=== PATIENT | male | born 1955 | race Caucasian/White ===

== ENCOUNTER 2017-10-24 13:11 | Emergency (ER) | payer OTHER, SELFPAY ==
[2017-10-24 14:53] VITALS: BP 172/82; PULSE 79; RESP 20; TEMP 37; O2SAT 95; BMI 28.1
--- NOTE | 2017-10-24 14:56 | XR_ITS ---
XR knee LT 3V Ordering Physician: Allyson Johnson Patient Age: 62 years: Male HISTORY: ITS.REASON: HEARD A POP TECHNIQUE: AP and lateral left knee. COMPARISON :None FINDINGS No fracture nor dislocation evident. No significant joint effusion upper normal joint fluid suprapatella bursa. Bones well mineralized. Joint spaces fairly well maintained with only borderline narrowing at the medial & lateral compartment on these non-weightbearing images. Minor osseous prominence spurring along anterior margin the tibial tubercle is likely long-standing old feature. IMPRESSION: No acute findings. No fracture nor significant joint effusion. Borderline joint space narrowing
--- NOTE | 2017-10-24 15:20 | HMH.EDUTC ---
[facility] [place] Disposition Clinical Impression: Knee pain Qualifiers: Chronicity: acute Laterality: left Qualified Code(s): M25.562 - Pain in left knee Disposition: Home, Self-Care Condition on Discharge: Good Instructions: DI for Knee Pain, How to Use Crutches, How to Use a Knee Immobilizer Additional Instructions: *weight bearing as tolerated *RICE, Rest the extremity, Ice 15-20 minutes 3-4 times daily, Compress- wear the jordy wrap as discussed as much as possible to help reduce swelling and pain, Elevate the extremity when at rest *Jordy wrap is for support and help control swelling, use it except in the shower. Be sure that is not to tight but not to loose either *Elevate when resting *Ibuprofen 600-800mg every 6-8 hours as needed for pain an inflammation. If need something more can take Tylenol in between doses of Ibuprofen to help Immediately follow up for new or worsening of symptoms, or no noticeable improvement over the next 3-5 days Prescriptions: Ibuprofen [Ibuprofen 800mg Tab] 800 mg PO Q8HP PRN #30 tab PRN Reason: Moderate Pain Referrals: Stevo Gonzalez MD [Primary Care Provider] - Jose Carvajal MD [Staff Physician] - Tamir Christianson MD [Staff Physician] - Forms: Work/School Release Time of Disposition: 15:42 Medical Decision Making - Medical Records Medical records reviewed: Yes: I reviewed the patient's medical records. Vital Signs: 10/24/17 14:53 Temperature 98.6 F Temperature Source Temporal Artery Scan Pulse Rate [Right Brachial] 79 Respiratory Rate 20 Blood Pressure [Right Arm] 172/82 Blood Pressure Mean [Right Arm] 112 Blood Pressure Source [Right Arm] Automatic Cuff Blood Pressure Position [Right Arm] Sitting 02 Sat by Pulse Oximetry 95 Oxygen Delivery Method Room Air - Radiology Data #1 Image Reviewed: Yes I discussed the image results w/the radiologist - Salo Inquiry Pt receiving controlled substance: No Salo was queried for this patient: No [facility] [place] HPI - General Stated complaint: WC [id number] left knee Mode of Arrival: Ambulatory Source of Information: Patient Limitations: No Limitations Description of Symptoms (Recalled from Triage Doc. by RN): PT WAS LIFTING A BOX WITH HIS LEFT KNEE AND HEARD IT POP. HEENT Symptoms (Recalled from RN notes): No Resp Symptoms (Recalled from RN notes): No Skin Symptoms (Recalled from RN notes): No MS Symptoms (Recalled from RN notes): Yes (LEFT KNEE) Functional Status (Recalled from RN notes): NA - History of Present Illness Provider Complaint: Patient state that he was working and was lifting a box when he felt something in his knee began to feel weird. States that it felt like something. tweaked or torn State that ever since he has been having pain when he tries to walk on it or bear weight - Related Data Home Medications Medication Instructions Recorded Confirmed Losartan Potassium 50 mg PO DAILY 10/24/17 10/24/17 Previous Rx's Medication Instructions Recorded Ibuprofen [Ibuprofen 800mg Tab] 800 mg PO Q8HP PRN #30 tab 10/24/17 Allergies Allergy/AdvReac Type Severity Reaction Status Date / Time No Known Allergies Allergy Verified 10/24/17 14:30 - Worker's Comp Is this a Worker's Comp case?: No H History I have reviewed the patient's past medical history: Yes - *Social History Smoking Status: Never smoker Alcohol Intake: never - Psychiatric History Expresses thoughts of harming self/others: None Suicide Plan Description: No Plan ROS Obtained: Yes All systems reviewed & no additional complaints - Musculoskeletal Musculoskeletal: Reports other (Pain in left knee) - Allergic/Immunologic Comments: Patient was at work when he tried to lift heavy box, states that box was heavy so he used his left knee to help him lift the box when he felt the knee give State that pain has continued to get worse as the day has went on Physical Exam - General General appearance: alert, in no apparent
--- NOTE | 2017-10-24 15:28 | ED_ITS ---
[facility] [place] Clinical Impression: Knee pain Qualifiers: Chronicity: acute Laterality: left Qualified Code(s): M25.562 - Pain in left knee Disposition: Home, Self-Care Condition on Discharge: Good Instructions: DI for Knee Pain, How to Use Crutches, How to Use a Knee Immobilizer Additional Instructions: *weight bearing as tolerated *RICE, Rest the extremity, Ice 15-20 minutes 3-4 times daily, Compress- wear the jordy wrap as discussed as much as possible to help reduce swelling and pain, Elevate the extremity when at rest *Jordy wrap is for support and help control swelling, use it except in the shower. Be sure that is not to tight but not to loose either *Elevate when resting *Ibuprofen 600-800mg every 6-8 hours as needed for pain an inflammation. If need something more can take Tylenol in between doses of Ibuprofen to help Immediately follow up for new or worsening of symptoms, or no noticeable improvement over the next 3-5 days Prescriptions: Ibuprofen [Ibuprofen 800mg Tab] 800 mg PO Q8HP PRN #30 tab PRN Reason: Moderate Pain Referrals: Stevo Gonzalez MD [Primary Care Provider] - Jose Carvajal MD [Staff Physician] - Tamir Christianson MD [Staff Physician] - Forms: Work/School Release Time of Disposition: 15:42 Medical Decision Making - Medical Records Medical records reviewed: Yes: I reviewed the patient's medical records. Vital Signs: 10/24/17 14:53 Temperature 98.6 F Temperature Source Temporal Artery Scan Pulse Rate [Right Brachial] 79 Respiratory Rate 20 Blood Pressure [Right Arm] 172/82 Blood Pressure Mean [Right Arm] 112 Blood Pressure Source [Right Arm] Automatic Cuff Blood Pressure Position [Right Arm] Sitting 02 Sat by Pulse Oximetry 95 Oxygen Delivery Method Room Air - Radiology Data #1 Image Reviewed: Yes I discussed the image results w/the radiologist - Salo Inquiry Pt receiving controlled substance: No Salo was queried for this patient: No [facility] [place] - General Stated complaint: WC [id number] left knee Mode of Arrival: Ambulatory Source of Information: Patient Limitations: No Limitations Description of Symptoms (Recalled from Triage Doc. by RN): PT WAS LIFTING A BOX WITH HIS LEFT KNEE AND HEARD IT POP. HEENT Symptoms (Recalled from RN notes): No Resp Symptoms (Recalled from RN notes): No Skin Symptoms (Recalled from RN notes): No MS Symptoms (Recalled from RN notes): Yes (LEFT KNEE) Functional Status (Recalled from RN notes): NA - History of Present Illness Provider Complaint: Patient state that he was working and was lifting a box when he felt something in his knee began to feel weird. States that it felt like something. tweaked or torn State that ever since he has been having pain when he tries to walk on it or bear weight - Related Data Home Medications Medication Instructions Recorded Confirmed Losartan Potassium 50 mg PO DAILY 10/24/17 10/24/17 Previous Rx's Medication Instructions Recorded Ibuprofen [Ibuprofen 800mg Tab] 800 mg PO Q8HP PRN #30 tab 10/24/17 Allergies Allergy/AdvReac Type Severity Reaction Status Date / Time No Known Allergies Allergy Verified 10/24/17 14:30 - Worker's Comp Is this a Worker's Comp case?: No H History I have reviewed the patient's past medical history: Yes - *Social History Smoking Status: N
== END 2017-10-24 16:06 | disposition home or self-care (01) ==
LOC: ER 13:20 → UTC 13:44
PROVIDERS: Emergency Provider Nurse Practitioner; Family Provider Family Medicine; PCP Family Medicine
DX: S89.90XA Unspecified injury of unspecified lower leg, initial encounter (principal); X50.0XXA Overexertion from strenuous movement or load, initial encounter; Y92.69 Other specified industrial and construction area as the place of occurrence of the external cause
CPT/HCPCS: 29505; 73562; 99202; 99282

== ENCOUNTER 2019-04-24 12:16 | Outpatient (CLI) | payer OTHER, SELFPAY ==
[2019-04-24 12:26] VITALS: BMI 25.1
== END 2019-04-24 12:39 | disposition home or self-care (01) ==
LOC: UTC.OUT 12:17
PROVIDERS: PCP Family Medicine; Visit Provider Emergency Medicine
DX: L23.7 Allergic contact dermatitis due to plants, except food (principal)

== ENCOUNTER → 2019-09-04 15:44 | Outpatient (POV) | payer OTHER, SELFPAY | PROVIDERS: Visit Provider Dermatology | DX: Z00.00 Encounter for general adult medical examination without abnormal findings (principal) ==

== ENCOUNTER → 2020-12-30 15:22 | Outpatient (POV) | payer OTHER, SELFPAY | PROVIDERS: Visit Provider Dermatology | DX: Z00.00 Encounter for general adult medical examination without abnormal findings (principal) ==

== ENCOUNTER → 2021-11-27 12:08 | Outpatient (CLI) | payer OTHER, SELFPAY ==
--- NOTE | 2021-11-27 12:16 | XR_ITS ---
FINAL REPORT CLINICAL HISTORY: left knee pain, injury 2 years ago while lifting a heavy box and it got better , now it is hurting again COMPARISON: October 24, 2017 FINDINGS: 4 views of the left knee were obtained. There is no acute fracture or dislocation. There are mild degenerative changes. There is vascular calcification. IMPRESSION: Mild degenerative change. Reviewed, Interpreted and Dictated by Korey Salvador III, MD Transcribed by Alli Adams Authenticated by Korey Salvador III, MD on 11/27/2021 01:20:49 PM [facility]
== END ==
PROVIDERS: PCP Family Medicine; Visit Provider Orthopaedic Surgery
DX: M25.562 Pain in left knee (principal)
CPT/HCPCS: 73564

== ENCOUNTER → 2021-12-07 14:21 | Outpatient (CLI) | payer OTHER, SELFPAY ==
--- NOTE | 2021-12-07 14:25 | MR_ITS ---
FINAL REPORT CLINICAL HISTORY: left knee pain, tear of meniscus. yrs ago patient heard a pop in knee. knee locks up. swelling in knee. prior x-ray 11-27-21 FINDINGS: Multiplanar MR imaging of the left knee was performed without contrast. There is abnormal morphology of the posterior horn of the medial meniscus. Although this could represent postoperative change, the appearance is most worrisome for a tear. There is a probable tear at the anterior horn of the lateral meniscus. The anterior and posterior cruciate ligaments are intact. The medial collateral ligament and lateral ligamentous complex are intact. The patellar and quadriceps tendons are intact. There is no evidence of fracture. Mild degenerative changes are seen. There is severe chondromalacia of the medial compartment with osteochondral lesions of the medial femoral condyle and medial tibial plateau. Bone marrow edema is noted in the medial femoral condyle and medial tibial plateau. A small joint effusion is seen. The musculature is intact. A small popliteal cyst is noted. IMPRESSION: Abnormal appearance of the posterior horn of the medial meniscus most worrisome for a tear. Probable tear anterior horn lateral meniscus. 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 Authenticated by Korey Salvador III, MD on 12/07/2021 03:59:41 PM [facility]
== END ==
PROVIDERS: PCP Family Medicine; Visit Provider Orthopaedic Surgery
DX: M17.12 Unilateral primary osteoarthritis, left knee (principal); S83.207A Unspecified tear of unspecified meniscus, current injury, left knee, initial encounter
CPT/HCPCS: 73721

== ENCOUNTER → 2022-10-20 07:56 | Outpatient (CLI) | payer OTHER, SELFPAY ==
--- NOTE | 2022-10-20 | CA_ITS ---
APPROVED REPORT EXAM: Comprehensive 2D, Doppler, and color-flow Echocardiogram Hammer Heater: April Sung CRT Ht: 5 ft 8 in Wt: 185lbs BSA: 1.98 BP: 127/85 mmHg Indications: Murmur, Hypertension/HDD, EX SMOKER, ASTHMA 2D Dimensions LVOT 1.30 cm (M/F) 1.5-2.5 LA Volume 28.10 mL LA Volume Index 13.80 mL/m2 (M/F) 16-34 M-Mode Dimensions RVDd 2.39 cm (0.9-2.6) LA Diam 3.27 cm (1.9-4.0) LVDd 4.94 cm (3.5-5.7) Ao Diam 3.90 cm (2.0-3.7) LVDs 3.65 cm (3.5-5.7) IVSd 1.29 cm (0.6-1.1) PWd 0.87 cm (0.6-1.1) EF (Teich) 51.00% FS 26.10% EDV (Teich) 115.00 mL TAPSE 1.94 (<1.7) ESV (Teich) 56.30 mL LV Diastology E Decel Time 353.00 (160-240 msec) E/A Ratio 0.97 MED E' 4.60 (< 7 cm/sec) MED A' 8.50 cm/s E'/MED E' Ratio 24.35 (>14) LAT E' 7.80 (<10 cm/sec) LAT A' 13.40 cm/s E/LAT E' Ratio 14.36 (>14) Aortic Valve LVOT Max 156.00 (70-110 cm/s) LVOT VTI 38.83 cm AoV Peak Byron. 206.00 (50-130 cm/s) AI PHT 375.00 ms AO Peak GR. 18.50 mmHg AO Mean GR. 11.50 (<5 mmHg) AO VTI 44.19 (18-25 cm) SHAYAN (VTI) 1.17 (2.5-4.5 cm2) Mitral Valve MV E Max Byron. 112.00 (40-130 cm/s) MV A Velocity 115.00 (40-130 cm/s) E/A Ratio 0.97 MV Decel. Time 353.00 (160-240 ms) MV PHT 103.00 ms Pulmonary Valve PV Peak Velocity 164.00 (50-150 cm/s) Tricuspid Valve TR P. Velocity 179.00 cm/s RAP Estimate 10.00 mmHg RVSP 22.80 mmHg Left Ventricle Left atrium is mildly enlarged, left ventricle is normal size mild concentric left ventricular hypertrophy, estimated ejection fraction 55% with no regional wall motion abnormality, grade 1 diastolic dysfunction seen without tissue Doppler evidence of raise left atrial pressure. Right Ventricle Right atrium and right ventricular normal size and contractility. Aortic Valve Aortic valve is thickened and calcified with mild reduction leaflet mobility, mean gradient across aortic valve is 16 mmHg, which represents mild aortic stenosis, there is trace aortic insufficiency. Mitral Valve Mitral valve is grossly normal, there is trace mitral regurgitation. Tricuspid Valve Tricuspid grossly normal, there is trace tricuspid regurgitation, tricuspid regurgitation jet velocity is inadequate for calculation of the right ventricular systolic pressure. Pulmonic Valve Pulmonic valve is poorly visualized. Great Vessels Aortic root is normal size. Inferior vena cava is normal size with normal inspiratory collapse. Pericardium No significant pericardial effusion noted. Conclusion 1. Mildly enlarged left atrium, normal left ventricular size mild concentric left ventricular hypertrophy, estimated ejection fraction 55% with no regional wall motion abnormality, grade 1 diastolic dysfunction seen without tissue Doppler evidence of raise left atrial pressure. 2. Thickened and calcified aortic valve with mild aortic stenosis, there is trace aortic insufficiency. 3. Trace mitral and tricuspid regurgitation. 4. No significant pericardial effusion. 5. Inferior vena cava normal size with normal inspiratory collapse. Electronically signed by : John Foster MD 10/20/2022 14:41:04
== END ==
PROVIDERS: PCP Family Medicine; Visit Provider Family Medicine
DX: R01.1 Cardiac murmur, unspecified (principal)
CPT/HCPCS: 93306

== ENCOUNTER 2023-10-26 10:40 | Outpatient (CLI) | payer OTHER, SELFPAY ==
--- NOTE | 2023-10-26 10:46 | XR_ITS ---
FINAL REPORT CLINICAL HISTORY: Lt Knee Pain FINDINGS: Left knee Three views were obtained. There is no acute fracture or dislocation. There are mild and moderate degenerative changes. There is moderate medial compartment narrowing. Moderate joint effusion is identified. Vascular calcification is noted. IMPRESSION: Degenerative changes and moderate joint effusion. Reviewed, Interpreted and Dictated by Korey Salvador III, MD Transcribed by April Hernandez Authenticated and [facility]
== END 2023-10-26 23:59 ==
LOC: RAD 10:41
PROVIDERS: PCP Family Medicine; Visit Provider Orthopaedic Surgery
DX: M25.562 Pain in left knee (principal)
CPT/HCPCS: 73562

== ENCOUNTER 2023-11-15 07:01 | Outpatient (CLI) | payer OTHER, SELFPAY ==
[2023-11-15 08:19] LABS: Chloride 104 mmol/L (98-107)
[2023-11-15 08:20] LABS: Potassium 4.7 mmoL/L (3.5-5.1); Sodium 139 mmol/L (136-145)
[2023-11-15 08:22] LABS: Alanine Aminotransferase 31 U/L (12-78); Albumin Level 4.1 g/dl (3.5-5.0); Albumin/Globulin Ratio 1.5 (1.1-1.8); Alkaline Phosphatase 80 U/L (38-126); Anion Gap 7.7 mEq/L (5-15); Aspartate Amino Transferase 33 U/L (17-59); Bilirubin,Total 0.6 mg/dl (0.2-1.3); Blood Urea Nitrogen 17 mg/dl (9-20); Calcium 9.5 mg/dl (8.4-10.2); Carbon Dioxide 32 mmol/L (22.0-30.0); Cholesterol 208 mg/dl (140-200); Estimated Glomerular Filt Rate 96 ml/min (>60); GFR (African American) 116 ML/MIN (>60); Globulin 2.7 g/dL (1.3-3.2); Glucose 139 mg/dl (74-100); Total Protein,Serum 6.8 g/dl (6.3-8.2); Triglycerides 116 mg/dl (30-150); VLDL Cholesterol 23 mg/dL (0-40)
[2023-11-15 08:23] LABS: Chol/HDL Ratio 4.6 (1-3.5); HDL Cholesterol 45 mg/dl (40-60)
[2023-11-15 08:34] LABS: Direct LDL Cholesterol 118.62 mg/dL (100-129)
[2023-11-15 09:00] LABS: Uric Acid 4.6 mg/dl (3.5-8.5)
[2023-11-15 09:31] LABS: Prostate Specific Ag Screen 0.8 ng/ml (0.0-4.0); Thyroid Stimulating Hormone 2.41 uIU/mL (0.465-4.68)
[2023-11-15 10:31] LABS: Hemoglobin A1C 6.4 % (4.0-6.0)
[2023-11-15 16:24] LABS: Creatinine,Urine Random 123 mg/dL (Not Estab.)
[2023-11-15 16:27] LABS: Microalbumin/Creatinine Ratio 12.9
== END 2023-11-15 23:59 ==
LOC: LAB 07:02
PROVIDERS: PCP Family Medicine; Visit Provider Family Medicine
DX: I10 Essential (primary) hypertension (principal); E78.00 Pure hypercholesterolemia, unspecified; R73.01 Impaired fasting glucose; Z12.5 Encounter for screening for malignant neoplasm of prostate
CPT/HCPCS: 36415; 80053; 80061; 82043; 82570; 83036; 84443; 84550; G0103

== ENCOUNTER 2024-07-29 09:58 | Emergency (ER) | payer OTHER, SELFPAY ==
[2024-07-29] VITALS (7 sets, daily range): BP systolic 126–272; BP diastolic 93–134; PULSE 63–101; RESP 16–22; TEMP 36.8–36.9; O2SAT 95–98; BMI 27.2
--- NOTE | 2024-07-29 10:19 | EXP.UTC ---
Discharge Plan Prescriptions Prescriptions: No Action carvedilol 12.5 mg tablet 12.5 mg PO BID irbesartan-hydrochlorothiazide 300-12.5 mg tablet PO Referrals Follow up/Referrals: Stevo Gonzalez MD [Primary Care Provider] - See instructions Print Language Print Language: Portuguese Discharge ED Provider: Tamir Gibson [facility] [place] HPI General Stated complaint: Headache, dizzy, hallucinations, weakness Time Seen by Provider: 07/29/24 10:19 History of Present Illness Provider Complaint: He states that for the past 2 days he has had a headache, confusion at times, dizziness, and he has had hallucinations at times. Related Data Home Medications ?Medication ?Instructions ?Recorded ?Confirmed carvedilol 12.5 mg tablet 12.5 mg PO BID bp 12/19/18 10/27/23 irbesartan 300 tab PO 10/27/23 10/27/23 mg-hydrochlorothiazide 12.5 mg tablet Allergies Allergy/AdvReac Type Severity Reaction Status Date / Time No Known Allergies Allergy Verified 10/27/23 08:59 [facility] Disclaimer: The information contained in this section may have been updated after the patient was seen, as this information can be updated by other users. 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 [employer] caffeine: Yes ROS Obtained: Yes All systems reviewed & no additional complaints except as documented Constitutional Constitutional: Denies chills, Denies fever(s) and Reports headache(s) Eyes Eyes: Denies eye discharge ENT Ears, Nose, Mouth, and Throat: Reports dizziness, Denies otalgia, Reports headache(s) and Denies sore throat Cardiovascular Cardiovascular: Denies chest pain Respiratory Respiratory: Denies shortness of breath, Denies chest congestion, Denies cough, Denies stridor and Denies wheezing Gastrointestinal Gastrointestingal: Denies nausea or vomiting Musculoskeletal Musculoskeletal: Reports system reviewed and no additional complaints, except as documented and Denies arthralgias Integumentary/Breasts Skin/Breast: Denies rash Neurologic Neurologic: Reports as per HPI, Reports dizziness, Reports headache(s), Reports other visual disturbances and Denies paresthesias Allergic/Immunologic Allergic/Immunologic: Denies wheezing Physical Exam General General appearance: alert and in no apparent distress Head Head exam: atraumatic, normocephalic and normal inspection Eye Eye exam: Present normal appearance, PERRL and EOMI ENT ENT exam: Present normal exam, normal oropharynx, mucous membranes moist, TM's normal bilaterally and normal external ear exam Neck Neck exam: Present normal inspection, full ROM and trachea midline; Absent meningismus or lymphadenopathy Chest Chest inspection: Present normal inspection and symmetric chest wall rise; Absent tenderness Respiratory Respiratory exam: Present normal lung sounds bilaterally; Absent respiratory distress Cardiovascular Cardiovascular exam: Present regular rate and normal rhythm; Absent JVD Abdominal Exam Abdominal exam: Present soft and normal bowel sounds; Absent distention, tenderness or guarding Extremities Exam Extremities exam: Present normal inspection, full ROM and normal capillary refill; Absent calf tenderness Back Exam Back exam: Present normal inspection; Absent tenderness Neurological Exam Neurological exam: Present alert, oriented X3, CN II-XII intact, normal gait and reflexes normal; Absent motor sensory deficit Psychiatric Psychiatric exam: Present normal affect and normal mood Skin Skin exam: Present warm, dry, intact and normal color Lymphatic Lymphatic Findings: no adenopathy Medical Decision Making Medical Records Medical records reviewed: No I reviewed the patient's medical records. Screening: Per USPSTF and CDC recommendations, given the prevalence of disease in our region, it is our hospital?s policy to screen for HIV and viral Hepatitis for all patients aged 18 and over and those with ongoing risk factors. Salo Inquiry Pt receiving controlled substance: No Medical Decision Narrative: He was transferred to the er [facility] for further evaluation and treatment.
--- NOTE | 2024-07-29 10:38 | ECG_ITS ---
APPROVED REPORT Exam: Resting ECG HR:75 bpm ECG Measurements Heart Rate 75 AXES WI 158 P 34 QRSd 108 QRS -35 QT 370 T 29 QTc 399 Conclusion SINUS RHYTHM WITH MARKED SINUS ARRHYTHMIA LEFT AXIS DEVIATION [QRS AXIS < -30] ABNORMAL ECG UNCONFIRMED REPORT Electronically signed by : Tamir Mclain, 07/29/2024 15:21:10
--- NOTE | 2024-07-29 10:40 | PC.NURSE ---
Finger Blood Stick is 125 at this time.
--- NOTE | 2024-07-29 10:55 | PC.NURSE ---
labs collected and sent to lab
--- NOTE | 2024-07-29 11:03 | CT_ITS ---
PROCEDURE INFORMATION: Exam: CTA Neck With Contrast Exam date and time: 07/29/2024 12:02 PM Age: 69 years old Clinical indication: Stroke-like symptoms; Headache; Additional info: Severe FLORES x 2 days with HTN TECHNIQUE: Imaging protocol: Computed tomographic angiography of the neck with contrast. Exam focused on the cervical segments of the vasculature. 3D rendering (Not supervised by radiologist): MIP and/or 3D reconstructed images were created by the technologist. Radiation optimization: All CT scans at this facility use at least one of these dose optimization techniques: automated exposure control; mA and/or kV adjustment per patient size (includes targeted exams where dose is matched to clinical indication); or iterative reconstruction. Contrast material: ISOVUE 370; Contrast volume: 80 ml; Contrast route: INTRAVENOUS (IV); COMPARISON: CT ANGIO HEAD 07/29/2024 12:02 PM FINDINGS: Right common carotid artery: No stenosis. No dissection or occlusion. Right internal carotid artery: No stenosis of the extracranial segment. No dissection or occlusion. Right external carotid artery: No occlusion or stenosis of the origin. Left common carotid artery: No stenosis. No dissection or occlusion. Left internal carotid artery: No stenosis of the extracranial segment. No dissection or occlusion. Left external carotid artery: No occlusion or stenosis of the origin. Right vertebral artery: No stenosis. No dissection or occlusion. Left vertebral artery: No stenosis. No dissection or occlusion. Soft tissues: Normal. No significant soft tissue swelling. Bones/joints: No acute fracture. IMPRESSION: No stenosis or occlusion. REFERENCES: NASCET CRITERIA. The degree of stenosis in the cervical segment of the internal carotid artery is based on NASCET criteria. Normal is no stenosis. Mild is less than 50% stenosis. Moderate is 50-69% stenosis. Severe is 70% to 99% stenosis. Total occlusion is no detectable patent lumen.
--- NOTE | 2024-07-29 11:03 | CT_ITS ---
PROCEDURE INFORMATION: Exam: CTA Head With Contrast, Arteriography Exam date and time: 07/29/2024 12:02 PM Age: 69 years old Clinical indication: Stroke-like symptoms; Headache; Additional info: Severe FLORES x 2 days with HTN TECHNIQUE: Imaging protocol: Computed tomographic angiography of the head with contrast. Exam focused on the arteries. 3D rendering (Not supervised by radiologist): MIP and/or 3D reconstructed images were created by the technologist. Radiation optimization: All CT scans at this facility use at least one of these dose optimization techniques: automated exposure control; mA and/or kV adjustment per patient size (includes targeted exams where dose is matched to clinical indication); or iterative reconstruction. Contrast material: ISOVUE 370; Contrast volume: 80 ml; Contrast route: INTRAVENOUS (IV); COMPARISON: CT HEAD/BRAIN WO CON 07/29/2024 11:57 AM FINDINGS: ANTERIOR CIRCULATION: Right internal carotid artery: Intracranial segment is patent with no significant stenosis. No aneurysm. Right middle cerebral artery: No occlusion or significant stenosis. No aneurysm. Right anterior cerebral artery: No occlusion or significant stenosis. No aneurysm. Left internal carotid artery: Intracranial segment is patent with no significant stenosis. No aneurysm. Left middle cerebral artery: No occlusion or significant stenosis. No aneurysm. Left anterior cerebral artery: No occlusion or significant stenosis. No aneurysm. POSTERIOR CIRCULATION: Right vertebral artery: No occlusion or significant stenosis. No aneurysm. Left vertebral artery: No occlusion or significant stenosis. No aneurysm. Basilar artery: No occlusion or significant stenosis. No aneurysm. Right posterior cerebral artery: Concern for vascular malformation in the right occipital lobe. No aneurysm. Recommend MRI/MRA for further evaluation. Left posterior cerebral artery: No occlusion or significant stenosis. No aneurysm. Brain: Right occipital infarct, mild mass effect, no midline shift. Cerebral ventricles: No ventriculomegaly. Bones/joints: Unremarkable. No acute fracture. Soft tissues: Unremarkable. 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 MRI/MRA recommended.
--- NOTE | 2024-07-29 11:03 | CT_ITS ---
PROCEDURE INFORMATION: Exam: CT Head Without Contrast Exam date and time: 07/29/2024 11:57 AM Age: 69 years old Clinical indication: Stroke-like symptoms; Headache; Additional info: Severe FLORES x 2 days with HTN TECHNIQUE: Imaging protocol: Computed tomography of the head without contrast. Radiation optimization: All CT scans at this facility use at least one of these dose optimization techniques: automated exposure control; mA and/or kV adjustment per patient size (includes targeted exams where dose is matched to clinical indication); or iterative reconstruction. Other technique: STROKE PROTOCOL was implemented. COMPARISON: No relevant prior studies available. FINDINGS: Brain: 6 mm hemorrhage in the occipital lobe at the gallegos-white interface. 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 No acute mass effect, midline shift, or extra-axial fluid collection. Cerebral ventricles: No ventriculomegaly. Paranasal sinuses: Visualized sinuses are unremarkable. No fluid levels. Mastoid air cells: Visualized mastoid air cells are well aerated. Bones: Unremarkable. No acute fracture. Soft tissues: Unremarkable. IMPRESSION: 1. 6 mm hemorrhage in the occipital lobe at the gallegos-white interface. Posterior cerebral distribution. 2. 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 ASSESSMENT: ASPECTS ([place] Stroke Program Early CT Score) is 10.
[2024-07-29 11:13] LABS: Basophils # 0.1 K/mm3 (0-0.2); Basophils % 1.1 % (0.1-2.0); Eosinophils # 0.1 K/mm3 (0.0-0.4); Eosinophils % 1.4 % (0.1-12.0); Hematocrit 42.3 % (42.0-52.0); Hemoglobin 14.7 g/dL (14.1-18.0); Lymphocytes # 1.6 K/mm3 (0.7-4.5); Lymphocytes % 18.4 % (10-50); Mean Corpuscular HGB Conc 34.6 g/dL (31.8-35.4); Mean Corpuscular Hemoglobin 31.1 pg (27.0-31.2); Mean Corpuscular Volume 89.7 fl (80-94); Mean Platelet Volume 7.6 fl (7.4-10.4); Monocytes # 0.7 K/mm3 (0.1-1.0); Monocytes % 7.6 % (1.7-9.3); Neutrophils # 6.3 K/mm3 (1.8-7.8); Neutrophils % 71.5 % (37.0-80.0); Platelet Count 492 K/mm3 (142-424); Red Blood Count 4.71 M/mm3 (4.60-6.20); Red Cell Distribution Width 13.8 % (11.5-17.5); White Blood Count 8.8 K/mm3 (4.8-10.8)
[2024-07-29 11:15] LABS: Albumin Level 4.6 g/dl (3.5-5.0); Chloride 102 mmol/L (98-107); Potassium 3.6 mmoL/L (3.5-5.1); Sodium 140 mmol/L (136-145)
[2024-07-29] MEDS: KETOROLAC 30MG/ML VIAL 15 MG IV (11:17)
[2024-07-29] MEDS: diphenhydrAMINE 50MG/ML VIAL 25 MG IV (11:17)
[2024-07-29 11:18] LABS: Alanine Aminotransferase 28 U/L (12-78); Albumin/Globulin Ratio 1.4 (1.1-1.8); Alkaline Phosphatase 80 U/L (38-126); Anion Gap 11.6 mEq/L (5-15); Aspartate Amino Transferase 38 U/L (17-59); Blood Urea Nitrogen 14 mg/dl (9-20); Calcium 9.6 mg/dl (8.4-10.2); Carbon Dioxide 30 mmol/L (22.0-30.0); Creatinine Clearance Estimated 78 mL/min (50-200); Estimated Glomerular Filt Rate 95 ml/min (>60); GFR (African American) 115 ML/MIN (>60); Globulin 3.3 g/dL (1.3-3.2); Glucose 134 mg/dl (74-100); Total Protein,Serum 7.9 g/dl (6.3-8.2)
[2024-07-29] MEDS: LACTATED RINGERS 1000ML 1,000 ML 999 ML IV (11:18)
[2024-07-29] MEDS: PROCHLORPERAZINE 10MG/2ML VIAL 10 MG IV (11:18)
[2024-07-29 11:30] LABS: Troponin I 0.02 ng/ml (0.00-0.034)
[2024-07-29 11:48] LABS: HIV (1&2) Antibody Rapid NONREACTIVE (NONREACTIVE)
[2024-07-29] MEDS: 0.9 % SODIUM CHLORIDE 50 ML VIAL IV (12:08)
[2024-07-29] MEDS: IOPAMIDOL-370 (76%);100ML BOTTLE 80 ML IV (12:08)
[2024-07-29] MEDS: SODIUM CHLORIDE 0.9% 10ML SYR (RAD ONLY) 10 ML IV (12:08)
--- NOTE | 2024-07-29 12:15 | PC.NURSE ---
ROUNDED ON PT, REPORTS HEADACHE IMPROVING. CALL LIGHT WITHIN REACH, URINAL PROVIDED
--- NOTE | 2024-07-29 12:20 | PC.NURSE ---
DR OLIVEIRA SPEAKING WITH SALOMON
--- NOTE | 2024-07-29 12:22 | PC.NURSE ---
DR OLIVEIRA AT BEDSIDE TO UPDATE PT
--- NOTE | 2024-07-29 12:30 | HMH.EDGENADL ---
Discharge Plan Disposition Chief Complaint: Headache Prescriptions Prescriptions: No Action carvedilol 12.5 mg tablet 12.5 mg PO BID irbesartan-hydrochlorothiazide 300-12.5 mg tablet PO Referrals Follow up/Referrals: Stevo Gonzalez MD [Primary Care Provider] - See instructions Clinical Impressions Clinical Impression: Occipital stroke, Hemorrhagic stroke, Homonymous hemianopsia Print Language Print Language: Salvadorean Discharge ED Provider: Db Mclain General Adult HPI General Chief complaint: Headache Stated complaint: Headache, dizzy, hallucinations, weakness Time Seen by Provider: 07/29/24 10:19 Mode of Arrival: Wheelchair Source of Information: Patient Limitations: No Limitations Description of Symptoms (Recalled from ER Triage Doc. by RN): Reports being weak and dizzy since he got his flu shot on Tuesday. States that he has a severe headache and fatigue. Patient states that he has been having hallucinations as well. History of Present Illness HPI narrative: Patient is a 69-year-old male presenting today from the urgent treatment clinic with a headache and hypertension. States this started on Tuesday and was progressively worsening throughout the day and was very severe. He went to sleep woke up and it was slightly better. He did state initially he had some blurred vision but denied any focal neurologic deficits after that and in fact states that his vision was normal. States he still has a pretty moderate to severe headache. Related Data Home Medications ?Medication ?Instructions ?Recorded ?Confirmed carvedilol 12.5 mg tablet 12.5 mg PO BID bp 12/19/18 10/27/23 irbesartan 300 tab PO 10/27/23 10/27/23 mg-hydrochlorothiazide 12.5 mg tablet Allergies Allergy/AdvReac Type Severity Reaction Status Date / Time No Known Allergies Allergy Verified 10/27/23 08:59 [facility] Disclaimer: The information contained in this section may have been updated after the patient was seen, as this information can be updated by other users. 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 [employer] caffeine: Yes Other Medical History Have you received the Flu Vaccine for this season: Yes Have you received the Pneumonia Vaccine: Yes ROS Obtained: Yes All systems reviewed & no additional complaints except as documented Physical Exam General General appearance: alert and in no apparent distress Respiratory Respiratory exam: Present normal lung sounds bilaterally Cardiovascular Cardiovascular exam: Present regular rate and normal rhythm Neurological Exam Neurological exam: Present alert, oriented X3, CN II-XII intact (Initial exam appeared normal but on reassessment he has a left homonymous hemianopsia temporal and right nasal visual field loss otherwise normal visual acuity and remainder is neurologic exam is nonfocal), normal gait, motor sensory deficit and reflexes normal Medical Decision Making Medical Records Screening: Per USPSTF and CDC recommendations, given the prevalence of disease in our region, it is our hospital?s policy to screen for HIV and viral Hepatitis for all patients aged 18 and over and those with ongoing risk factors. Salo Inquiry Pt receiving controlled substance: No Vital Signs: 07/29/24 10:27 07/29/24 10:41 Temperature 98.4 F 98.4 F Temperature Source Oral Oral Pulse Rate [Right Brachial] 83 83 Respiratory Rate 20 16 Blood Pressure [Left Arm] 272/134 H 242/114 H Blood Pressure Mean [Left Arm] 180 156 Blood Pressure Source [Left Arm] Automatic Cuff Blood Pressure Position [Left Arm] Sitting 02 Sat by Pulse Oximetry 95 95 Oxygen Delivery Method Room Air Lab Data Lab results reviewed: Yes I reviewed the patient's lab results. Lab Results 07/29/24 10:55: WBC 8.8, RBC 4.71, Hgb 14.7, Hct 42.3, MCV 89.7, MCH 31.1, MCHC 34.6, RDW 13.8, Plt Count 492 H, MPV 7.6, Neut % (Auto) 71.5, Lymph % (Auto) 18.4, Bucks % (Auto) 7.6, Eos % (Auto) 1.4, Baso % (Auto) 1.1, Neut # (Auto) 6.3, Lymph # (Auto) 1.6, Bucks # (Auto) 0.7, Eos # (Auto) 0.1, Baso # (Auto) 0.1, Sodium 140, Potassium 3.6, Chloride 102, Carbon Dioxide 30, Anion Gap 11.6, BUN 14, Creatinine 0.80, Estimated Creat Clear 78, Estimated GFR 95, Est GFR ( Amer) 115, Glucose 134 H, Calcium 9.6, Total Bilirubin 1.0, AST 38, ALT 28, Alkaline Phosphatase 80, Troponin I 0.02, Total Protein 7.9, Albumin 4.6, Globulin 3.3 H, Albumin/Globulin Ratio 1.4, HIV 1&2 Antibody Rapid Nonreactive 07/29/24 10:55 07/29/24 10:55 Orders (Tests/Meds): ED MEDICATIONS Discontinued Medications Generic Name Dose Route Start Last Admin Trade Name Freq PRN Reason Stop Dose Admin Diphenhydramine HCl 25 mg 07/29/24 11:03 07/29/24 11:17 Diphenhydramine 50mg/Ml Vial IV 07/29/24 11:04 25 mg ONCE ONE Administration Lactated Ringer's 1,000 mls @ 999 mls/hr 07/29/24 11:15 07/29/24 11:18 Lactated Ringer's 1000 Ml Bag IV 07/29/24 12:15 999 mls/hr .Q1H1M ZOEY Administration Iopamidol 80 ml 07/29/24 12:07 07/29/24 12:08 Iopamidol-370 (76%);100ml Bottle IV 07/29/24 12:08 80 ml ONCE ONE Administration Ketorolac Tromethamine 15 mg 07/29/24 11:03 07/29/24 11:17 Ketorolac 30mg/Ml Vial IV 07/29/24 11:04 15 mg ONCE ONE Administration Prochlorperazine Edisylate 10 mg 07/29/24 11:03 07/29/24 11:18 Prochlorperazine 10mg/2ml Vial IV 07/29/24 11:04 10 mg ONCE ONE Administration Sodium Chloride 10 ml 07/29/24 12:07 07/29/24 12:08 Sodium Chloride 0.9% 10ml Syr (Rad Only) IV 07/29/24 12:08 10 ml ONCE ONE Administration Sodium Chloride 50 ml 07/29/24 12:07 07/29/24 12:08 0.9 % Sodium Chloride 50 Ml Vial IV 07/29/24 12:08 50 ml ONCE ONE Administration ORDERS Category Date Time Status CT angio head Stat Cat Scan 07/29/24 11:[address] angio neck Stat Cat Scan 07/29/24 11:[address] head/brain wo con Stat Cat Scan 07/29/24 11:03 Completed CBC w/Auto Diff [Complete Blood Count Auto Diff] Stat Lab 07/29/24 10:55 Completed CMP [Comprehensive Metabolic Panel] Stat Lab 07/29/24 10:55 Completed HIV (1&2) Antibody Rapid Stat Lab 07/29/24 10:55 Completed Hep C Ab with Reflex to RNA Stat Lab 07/29/24 10:55 Received Trop I [Troponin I] Stat Lab 07/29/24 10:55 Completed Troponin I Q3H Lab 07/29/24 14:15 Ordered Troponin I Q3H Lab 07/29/24 17:15 Ordered Medical Decision Narrative: 69-year-old above history and physical. Initially his exam appeared normal to me that he had visual acuity that was normal I did not check visual huber and treated him for a headache and hypertension he was given a migraine cocktail which improved his blood pressure from 240/110 to 140/64 he felt significantly better. However on CT scan of his head there was concern for a right occipital stroke which is hemorrhagic and some vasogenic edema and there was also evidence on CTA of a concern for AVM. These images have been shared with [facility]. Will start the patient on a Cardene drip with a goal blood pressure less than 140 systolic. On reassessment neurologically patient does not fact have a homonymous hemianopsia on my exam with a left temporal into right nasal visual field loss. He will require an MRI he will need to be seen by neurology will need to be in ICU for aggressive blood pressure management. Patient is aware this he was accepted by Dr. Underwood with the [facility] stroke team. Critical Care Critical Care Time Critical Care Time: Yes Attestation: On 07/29/24, the high probability of a clinically significant, sudden or life threatening deterioration of the following system(s) required my full and direct attention, intervention and personal management. The time I documented below is in addition to time spent performing reported procedures but includes the following listed in this critical care notation. Total Time Total Critical Care Time: 65
--- NOTE | 2024-07-29 12:31 | PC.NURSE ---
DR OLIVEIRA SPEAKING WITH NURSE STROKE NAVIGATOR AT
--- NOTE | 2024-07-29 12:42 | PC.NURSE ---
[facility] NOTIFIED OF TRANSFER
[2024-07-29] MEDS: NICARDIPINE HCL 25 MG in 0.9 % SODIUM CHLORIDE 240 ML 50 MG IV (12:50)
--- NOTE | 2024-07-29 13:07 | PC.NURSE ---
Report given to April at [facility]. [facility] here for transport.
[2024-07-31 05:16] LABS: HCV Ab Non Reactive (Non Reactive)
== END 2024-07-29 13:15 ==
LOC: UTC 10:02 → ER 10:35
PROVIDERS: Emergency Provider Student in an Organized Health Care Education/Training Program; PCP Family Medicine
DX: H53.469 Homonymous bilateral field defects, unspecified side (principal); I61.9 Nontraumatic intracerebral hemorrhage, unspecified; I63.9 Cerebral infarction, unspecified; R51.9 Headache, unspecified; R42 Dizziness and giddiness; R53.1 Weakness; R53.83 Other fatigue; R44.3 Hallucinations, unspecified
CPT/HCPCS: 70450; 70496; 70498; 80053; 84484; 85025; 86803; 87389; 93005; 96361; 96374; 96375; 99291; J0780; J1200; J1885; J7120; Q9967

== ENCOUNTER 2024-11-01 07:12 | Outpatient (CLI) | payer OTHER, SELFPAY ==
[2024-11-01 08:40] LABS: Alanine Aminotransferase 29 U/L (12-78); Albumin Level 4.6 g/dl (3.5-5.0); Albumin/Globulin Ratio 1.9 (1.1-1.8); Alkaline Phosphatase 86 U/L (38-126); Anion Gap 13.6 mEq/L (5-15); Aspartate Amino Transferase 32 U/L (17-59); Bilirubin,Total 0.8 mg/dl (0.2-1.3); Blood Urea Nitrogen 18 mg/dl (9-20); Calcium 9.5 mg/dl (8.4-10.2); Carbon Dioxide 31 mmol/L (22.0-30.0); Chloride 100 mmol/L (98-107); Chol/HDL Ratio 3.9 (1-3.5); Cholesterol 205 mg/dl (140-200); Estimated Glomerular Filt Rate 83 ml/min (>60); GFR (African American) 101 ML/MIN (>60); Globulin 2.4 g/dL (1.3-3.2); Glucose 132 mg/dl (74-100); HDL Cholesterol 53 mg/dl (40-60); Potassium 4.6 mmoL/L (3.5-5.1); Sodium 140 mmol/L (136-145); Triglycerides 104 mg/dl (30-150); VLDL Cholesterol 21 mg/dL (0-40)
[2024-11-01 09:10] LABS: Creatinine,Urine Random 91 mg/dL (Not Estab.); Microalbumin/Creatinine Ratio 33.5
[2024-11-01 09:11] LABS: Prostate Specific Ag Screen 0.9 ng/ml (0.0-4.0); Thyroid Stimulating Hormone 1.83 uIU/mL (0.465-4.68)
[2024-11-01 09:49] LABS: Hemoglobin A1C 6.3 % (4.0-6.0)
== END 2024-11-01 23:59 | disposition home or self-care (01) ==
LOC: LAB 07:13
PROVIDERS: PCP Family Medicine; Visit Provider Family Medicine
DX: E78.00 Pure hypercholesterolemia, unspecified (principal); I10 Essential (primary) hypertension; R73.01 Impaired fasting glucose; Z12.5 Encounter for screening for malignant neoplasm of prostate
CPT/HCPCS: 36415; 80053; 80061; 82043; 82570; 83036; 84443; G0103

== ENCOUNTER 2024-12-13 15:39 | Outpatient (CLI) | payer OTHER, SELFPAY ==
--- NOTE | 2024-12-13 15:41 | US_ITS ---
FINAL REPORT CLINICAL HISTORY: urinary issues FINDINGS: Limited sonographic images of the bladder were obtained. Bladder volume filled is 442 mL. Postvoid residual is 26.4 mL. There is a lobular density in the posterior bladder, could represent mass or prostatic indentation measuring up to 12 mm. IMPRESSION: Unremarkable bladder volume. Polypoid lesion in the posterior bladder, may be prostatic although mass is not excluded. Recommend cystoscopy. Reviewed, Interpreted and Dictated by Carmen Murray MD Transcribed by April Hernandez Authenticated and [facility]
== END 2024-12-13 23:59 | disposition home or self-care (01) ==
LOC: RAD 15:40
PROVIDERS: PCP Family Medicine; Visit Provider Urology
DX: N40.1 Benign prostatic hyperplasia with lower urinary tract symptoms (principal); R39.15 Urgency of urination; R35.0 Frequency of micturition
CPT/HCPCS: 76857

== ENCOUNTER 2024-12-28 08:47 | Outpatient (CLI) | payer OTHER, SELFPAY ==
[2024-12-28 09:13] LABS: Blood Urea Nitrogen 15 mg/dl (9-20); Estimated Glomerular Filt Rate 83 ml/min (>60); GFR (African American) 101 ML/MIN (>60)
[2024-12-28] MEDS: SODIUM CHLORIDE 0.9% 10ML SYR (RAD ONLY) 10 ML IV (09:59)
[2024-12-28] MEDS: IOPAMIDOL-370 (76%);100ML BOTTLE 75 ML IV (09:59)
--- NOTE | 2024-12-28 10:00 | CT_ITS ---
FINAL REPORT TECHNIQUE: Axial CT of the abdomen and pelvis, without and with IV contrast. This study was performed with techniques to keep radiation doses as low as reasonably achievable, (ALARA). Individualized dose reduction techniques using automated exposure control or adjustment of mA and/or kV according to the patient''s size were employed. CLINICAL HISTORY: Bladder mass frequent urination FINDINGS: Abdomen: Lung bases are clear. Liver has an unremarkable CT appearance. The spleen, pancreas and adrenal glands are unremarkable. The gallbladder is contracted. There is no retroperitoneal adenopathy. Precontrast imaging shows no renal stone disease. Postcontrast imaging of the kidneys shows no mass or obstruction. No bowel obstruction or fluid collection is seen. Pelvis: The appendix is normal. Pelvic bowel loops are unremarkable. There is mild diffuse bladder wall thickening. There is mild prostate enlargement. There is borderline enlarging bilateral external iliac lymph nodes. Left side measures up to 13 mm. Right side measures up to 12 mm. There are mildly enlarged lower inguinal lymph nodes best appreciated on coronal imaging. Right inguinal node measures 22 x 13 mm. IMPRESSION: No evidence of upper urinary tract stone disease or obstruction. Mild nonspecific bladder wall thickening. Borderline distal bilateral external iliac adenopathy and inguinal adenopathy, nonspecific. No retroperitoneal adenopathy. Reviewed, Interpreted and Dictated by Carmen Murray MD Transcribed by April Hernandez Authenticated and [facility]
== END 2024-12-28 23:59 | disposition home or self-care (01) ==
LOC: RAD 08:48
PROVIDERS: PCP Family Medicine; Visit Provider Urology
DX: N32.89 Other specified disorders of bladder (principal)
CPT/HCPCS: 36415; 74178; 82565; 84520; Q9967

== ENCOUNTER 2025-01-25 08:06 | Day surgery (SDC) | payer OTHER, SELFPAY ==
[2025-01-22 10:07] VITALS: BMI 29.3
[2025-01-25 08:24] VITALS: BP 185/102; PULSE 80; RESP 18; TEMP 36.2; O2SAT 98
[2025-01-25] MEDS: LIDOCAINE 2% UROJET 10ML 10 ML (08:45)
[2025-01-25] MEDS: 0.9 % SODIUM CHLORIDE 500 ML 25 ML IV (08:45)
[2025-01-25 08:49] VITALS: BP 168/95; PULSE 84; RESP 18; TEMP 36.6; O2SAT 97
--- NOTE | 2025-01-25 08:51 | HMH.PROCNOTE ---
[facility] Procedure Note Date: 01/25/25 Time: 08:51 Procedure Note:: Chart review: The patient underwent a CT scan on 01/01 and a bladder mass was suggested. He is here for cystoscopy. Preop diagnosis: Bladder lesion Postop diagnosis: BPH Operative note: The patient was brought to the cystoscopy suite urethra was anesthetized with 2% Xylocaine jelly. The patient underwent flexible cystoscopy. The anterior urethra was unremarkable from the verumontanum the patient has grade 2 prostate obstruction from a short prostate. The bladder is finally trabeculated throughout. The ureteral orifice ease are normal bilaterally with clear E flux of urine. There is no evidence of bladder stone tumor hemorrhage lesion or mass effect. He tolerated the procedure well.
== END 2025-01-25 08:58 | disposition home or self-care (01) ==
PROVIDERS: PCP Family Medicine; Visit Provider Urology
PROC: 0TJB8ZZ Inspection of Bladder, Via Natural or Artificial Opening Endoscopic (ICD-10-PCS; CPT 52000; principal; 2025-01-25 09:15)
DX: R35.1 Nocturia; N40.1 Benign prostatic hyperplasia with lower urinary tract symptoms
CPT/HCPCS: 52000

== ENCOUNTER 2025-05-02 07:06 | Outpatient (CLI) | payer OTHER, SELFPAY ==
--- OUTSIDE RECORDS SUMMARY | 2024-08-29 10:45 | XMS_ITS ---
[facility] [address] [facility] [address] [place] [id number] Care Team Providers Care Ota Name Role Phone Stevo Gonzalez Primary Care Provider Allergies Allergen (clinical drug ingredient) Drug/Non Drug Allergy documented on EMR Reaction Allergy Type Onset Date Status angiotensin-converting enzyme inhibitor (FN) LINDSAY Inhibitors cough Drug Allergy Acti ve REASON FOR VISIT F/U from [facility] Medications Medication SIG (Take, Route, Frequency, Duration) Notes Start Date End Date Status amLODIPine Besylate 10 MG 1 tablet Orall y Once a day; Duration: 30 days Active hydrALAZINE HCl 50 MG 1 tablet with food Orally Three times a day; Duration: 30 days Active Irbesartan 300 MG 1 tablet Orally Once a day; Duration: 30 days 11/11/2023 Active Metoprolol Succinate ER 200 MG 1 tablet Orally Once a day; Duration: 30 days 06/15/2024 Active Vital Signs Blood pressure systolic 132 mm Hg 08/29/20 24 Blood pressure diastolic 74 mm Hg 024 Heart Rate 84 /min 08/29/2024 Height 68 in 08/29/2024 Weight 183.4 lbs 08/29/2024 BMI 27.88 kg/m2 08/29/2024 Encounters Encounter Location Date Provider Diagnosis [place] [address] [facility] [address] [place] [phone] 08/29/2024 Stevo Gonzalez Essential (primary) hypertension I10 Assessments Encounter Date Diagnosis (ICD Code) Assessment Notes Treatment Notes Treatment Clinical Notes Section Notes 08/29/2024 Essential (primary) hypertension (ICD-10 - I10) Plan Of Treatment Medication Medication Name Sig Start Date Stop Date Notes amLODIPine Besylate 10 MG 1 tablet Orall y Once a day; Duration: 30 days hydrALAZINE HCl 50 MG 1 tablet with food Orally Three times a day; Duration: 30 days Irbesartan 300 MG 1 tablet Orally Once a day; Duration: 30 days 11/11/2023 Metoprolol Succinate ER 200 MG 1 tablet Orally Once a day; Duration: 30 days 06/15/2024 Next Appt Details Follow Up: 2 Months, Reason: Provider Name:Stevo Almodovar , 11/04/2025 01:30:00 PM, [address], [address], [place], [place], [id number], Progress Notes * Ventura KIRKLANDDOB:1955 (69 yo M)Acc No.[id number]:08/29/2024 Patient: Ventura LIAO Provider: Sophia Gonzalez M.D. :1955 A ge:69 Y S ex:Male Date:08/29/2024 Address:[place] [address], [id number] Subjective: * Chief Complaints: * 1 . F/U from [facility]. * HPI: C ardiology: 69 year old male presents with c/o Blood Pressure Elevated P t here to f/u on hypertension, states that he did get a bp cuff and has been checking at home. Pt states bp has 140's/80's. * ROS: D ERMATOLOGY: no R mone. n o H edmar. G ASTROENTEROLOGY: no N ausea. n o V omiting. U ROLOGY: no D ifficulty urinating. n o B lood in urine. 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. * Surgical History: C olonoscopy 2006, 2012, 2019. * Hospitalization/Major Diagno stic Procedure: D enies Past Hospitalization. * Family History: F ather: 42 yrs, intestinal cancer. M other: alive 80 yrs. 1 sister(s) . .? * Social History: C URRENT TOBACCO USE S moking Status: Patient does NOT smoke. C affeine: yes, frequency: tea, three glasses a day. Home smoke detector use: yes. Marital Status: Single. Past smoking status: no. Alcohol: Yes, Type: , Frequency: ,Years: , Determination: wine, 3 or 4 glasses a week. Sexually active: yes. * Medications: T aking amLODIPine Besylate 10 MG Tablet 1 tablet Orally Once a day , Taking hydrALAZINE HCl 50 MG Tablet 1 tablet with food Orally tid , Taking Irbesartan 300 MG Tablet 1 tablet Orally Once a day , Taking Metoprolol Succinate ER 200 MG Tablet Extended Release 24 Hour 1 tablet Orally Once a day , Medication List reviewed and reconciled with the patient * Allergies: A CE Inhibitors: cough. Objective: * Vitals: W t:183.4, Temp:98.0, BP:132/74, HR:84, Nurse:rafaela, Ht: 68, BMI:27.88. * Examination: C ardiology: General Appearance: p leasant, NAD. H EENT: u nremarkable. H eart sounds: R RR, normal S1, S2. L ungs: c lear, no rales or wheezes.?Extremities: n o leg edema. Assessment: * Assessment: 1. E ssential (primary) hypertension - I10 (Primary) Plan: * Treatment: * Follow Up: 2 Months * Images: Billing Information: * Visit Code: 63412 Office Visit, Est Pt., Level 3. * Procedure Codes: * Electronic signature of Traci Gonzalez MD on 05/02/2025 at 07:08 AM EDT Sign off status: Pending * Provider: Sophia Gonzalez M.D. Date: 10/29/2023 Generated for Misha ramos/Segundo/Oralia on: 0 05/02/2025 07:08 AM EDT History and Physical Notes * HPI (History of Present Illness) Category Sub-Category Detail Notes Category Not es Cardiology Blood Pressure Elevated Pt here to f/u on hypertension, states that he did get a bp cuff and has been checking at home. Pt states bp has 140's/80's Examination Category Sub-Category Detail Notes Category Not es Cardiology Lungs: clear, no rales or wheezes HEENT: unremarkable Heart sounds: RRR, normal S1, S2 Extremities: no leg edema General Appearance: pleasant, NAD
--- OUTSIDE RECORDS SUMMARY | 2024-10-31 10:00 | XMS_ITS ---
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 mg/dL Random urine reference range not established. 24 hour urine samples recommended. MICROALB 30.500 0-16.7 mg/L MALBCREAT 33.5 Units: mg/g creat Normal: 0 - 29 Moderately Increased: 30 - 300 Severely Increased: >300 H-Lipid Panel Reviewed date:11/01/2024 10:40:37 AM Interpretation:chol 205, chol/hdl 3.9 Performing Lab: Notes/Report: Patient Fasting? Y TRIG 104 30-150 mg/dl CHOL 205 140-200 mg/dl DLDL 129.70 100-129 mg/dL VLDL 21 0-40 mg/dL HDL 53 40-60 mg/dl CHLHDL 3.9 1-3.5 H-CMP Reviewed date:11/01/2024 10:40:37 AM Interpretation:co2-31, gluc 132, a/g 1.9 Performing Lab: Notes/Report: NA 140 136-145 mmol/L K 4.6 3.5-5.1 mmoL/L CL 100 98-107 mmol/L CO2 31 22.0-30.0 mmol/L GAP 13.6 5-15 mEq/L BUN 18 9-20 mg/dl CREATT 0.90 0.66-1.25 mg/dl GFRAA 101 >60 ML/MIN EGFR 83 >60 ml/min GLU 132 74-100 mg/dl CA 9.5 8.4-10.2 mg/dl BILIT 0.8 0.2-1.3 mg/dl AST 32 17-59 U/L ALT 29 12-78 U/L TP 7.0 6.3-8.2 g/dl ALB 4.6 3.5-5.0 g/dl GLOB 2.4 1.3-3.2 g/dL AGRATIO 1.9 1.1-1.8 ALP 86 38-126 U/L H-Glycohemoglobin A1C Reviewed date:11/01/2024 10:40:37 AM Interpretation:6.3 Performing Lab: Notes/Report: HGBA1C 6.3 4.0-6.0 % < 6% Non-Diabetic Level < 7% Controlled Diabetic Level > 8% Poorly Controlled Diabetic Level H-PSA Reviewed date:11/01/2024 10:40:37 AM Interpretation:Normal Performing Lab: Notes/Report: PSASC 0.9 0.0-4.0 ng/ml REASON FOR VISIT 2 months Medications Medication SIG (Take, Route, Frequency, Duration) Notes Start Date End Date Status Metoprolol Succinate ER 200 MG 1 tablet Orally Once a day 06/15/2024 Active amLODIPine Besylate 10 MG 1 tablet Orall y Once a day Active hydrALAZINE HCl 50 MG 1 tablet with food Orally Three times a day Active Irbesartan 300 MG 1 tablet Orally Once a day 11/11/2023 Active Vital Signs Blood pressure systolic 130 mm Hg 10/31/19 25 Blood pressure diastolic 78 mm Hg 025 Heart Rate 88 /min 10/31/2024 Height 68 in 10/31/2024 Weight 194.4 lbs 10/31/2024 BMI 29.56 kg/m2 10/31/2024 Encounters Encounter Location Date Provider Diagnosis [facility] [address] [place], [place] [id number] 10/31/2024 Stevo Gonzalez Essential (primary) hypertension I10 ; Pure hypercholesterolemia E78.00 ; IFG (impaired fasting glucose) R73.01 and Prostate cancer screening Z12.5 Assessments Encounter Date Diagnosis (ICD Code) Assessment Notes Treatment Notes Treatment Clinical Notes Section Notes 10/31/2024 Essential (primary) hypertension (ICD-10 - I10) 10/31/2024 Pure hypercholesterolemia (ICD-10 - E78.00) 10/31/2024 IFG (impaired fastin g glucose) (ICD-10 - R73.01) 10/31/2024 Prostate cancer screening (ICD-10 - Z12.5) Plan Of Treatment Medication Medication Name Sig Start Date Stop Date Notes Metoprolol Succinate ER 200 MG 1 tablet Orally Once a day 06/15/2024 amLODIPine Besylate 10 MG 1 tablet Orally Once a day hydrALAZINE HCl 50 MG 1 tablet with food Orally Three times a day Irbesartan 300 MG 1 tablet Orally Once a day 11/11/2023 Next Appt Details Follow Up: 6 Months, Reason: Provider Name:Stevo Almodovar , 11/04/2025 01:30:00 PM, [address] [facility] [address] [facility], [address], [place], [id number], Progress Notes * Ventura KIRKLANDDOB:1955 (69 yo M)Acc No.[id number]:10/31/2024 Progress Notes Patient: Ventura LIAO Provider: Sophia Gonzalez M.D. :1955 A ge:69 Y S ex:Male Date:10/31/2024 Address:[place] [id number] Subjective: * Chief Complaints: * 1 . 2 months. * HPI: C ardiology: 69 year old male presents with c/o Blood Pressure Elevated P t here for 2 mo f/u on hypertension, states he is doing well and does not have any concerns. * ROS: D ERMATOLOGY: no R mone. n o H edmar. G ASTROENTEROLOGY: no N ausea. n o V omiting. U ROLOGY: no D ifficulty urinating. n o B lood in urine. 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 * Surgical History: C olonoscopy 2006, 2012, 2018. * Hospitalization/Major Diagno stic Procedure: D enies [...] MG Tablet 1 tablet with food Orally Three times a day , Taking Irbesartan 300 MG Tablet 1 tablet Orally Once a day , Taking Metoprolol Succinate ER 200 MG Tablet Extended Release 24 Hour 1 tablet Orally Once a day , Medication List reviewed and reconciled with the patient * Allergies: A CE Inhibitors: cough. Objective: * Vitals: W t:194.4, Temp:98.0, BP:130/78, HR:88, Nurse:rafaela, Ht: 68, BMI:29.56. * Examination: G eneral Examination: General Appearance: N AD. H EENT: u nremarkable.?Heart: R SR, systolic murmur present. L ungs: c lear to auscultation. N eurologic Exam: I ntact, gait normal. P eripheral pulses: n ormal (2+) bilaterally. E xtremities: n o leg edema. Assessment: * Assessment: 1. E ssential (primary) hypertension - I10 (Primary) 2 . P ure hypercholesterolemia - E78.00 3 . I FG (impaired fasting glucose) - R73.01 4 . P rostate cancer screening - Z12.5 Plan: * Treatment: Value Reference Range M ICROALB 30.500 H 0-16.7 - mg/L * U CREAT 91 Not Estab. - mg/dL * M ALBCREAT 33.5 - * Tequila Samuels 11/01/2024 10:40 :31 AM >See phone encounter ?LAB: H-CMP (Collection Date & Time - 11/01/2024 07:17 AM)?co2-31, gluc 132, a/g 1.9* Value Reference Range N A 140 136-145 - mmol/L * K 4.6 3.5-5.1 - mmoL/L * C L 100 98-107 - mmol/L * C O2 31 H 22.0-30.0 - mmol/L * G AP 13.6 5-15 - mEq/L * B UN 18 9-20 - mg/dl * C REATT 0.90 0.66-1.25 - mg/dl * G FRAA 101 >60 - ML/MIN * E GFR 83 >60 - ml/min * G NESSA 132 H 74-100 - mg/dl * C A 9.5 8.4-10.2 - mg/dl * B ILIT 0.8 0.2-1.3 - mg/dl * A ST 32 17-59 - U/L * A LT 29 12-78 - U/L * T P 7.0 6.3-8.2 - g/dl * A LB 4.6 3.5-5.0 - g/dl * G LOB 2.4 1.3-3.2 - g/dL * A GRATIO 1.9 H 1.1-1.8 - * A LP 86 38-126 - U/L * Tequila Samuels 11/01/2024 10:40 :31 AM >See phone encounter 2.?Pure hypercholesterolemia?LAB: H-TSH (Collection Date & Time - 11/01/2024 07:17 AM)?Normal* Value Reference Range T SH 1.83 0.465-4.68 - uIU/mL * Tequila Samuels 11/01/2024 10:40 :31 AM >See phone encounter ?LAB: H-Lipid Panel (Collection Date & Time - 11/01/2024 07:17 AM)?chol 205, chol/hdl 3.9* Value Reference Range T RIG 104 30-150 - mg/dl * C HOL 205 H 140-200 - mg/dl * D LDL 129.70 H 100-129 - mg/dL * V LDL 21 0-40 - mg/dL * H DL 53 40-60 - mg/dl * C HLHDL 3.9 H 1-3.5 - * Tequila Samuels 11/01/2024 10:40 :31 AM >See phone encounter ?LAB: H-CMP (Collection Date & Time - 11/01/2024 07:17 AM)?co2-31, gluc 132, a/g 1.9* Value Reference Range N A 140 136-145 - mmol/L * K 4.6 3.5-5.1 - mmoL/L * C L 100 98-107 - mmol/L * C O2 31 H 22.0-30.0 - mmol/L * G AP 13.6 5-15 - mEq/L * B UN 18 9-20 - mg/dl * C REATT 0.90 0.66-1.25 - mg/dl * G FRAA 101 >60 - ML/MIN * E GFR 83 >60 - ml/min * G NESSA 132 H 74-100 - mg/dl * C A 9.5 8.4-10.2 - mg/dl * B ILIT 0.8 0.2-1.3 - mg/dl * A ST 32 17-59 - U/L * A LT 29 12-78 - U/L * T P 7.0 6.3-8.2 - g/dl * A LB 4.6 3.5-5.0 - g/dl * G LOB 2.4 1.3-3.2 - g/dL * A GRATIO 1.9 H 1.1-1.8 - * A LP 86 38-126 - U/L * Tequila Samuels 11/01/2024 10:40 :31 AM >See phone encounter 3.?IFG (impaired fasting glucose)?LAB: H-Glycohemoglobin A1C (Collection Date & Time - 11/01/2024 07:17 AM)? 6.3* Value Reference Range H GBA1C 6.3 H 4.0-6.0 - % * Tequila Samuels 11/01/2024 10:40 :31 AM >See phone encounter 4.?Prostate cancer screening?LAB: H-PSA (Collection Date & Time - 11/01/2024 07:17 AM)?Normal* Value Reference Range P SASC 0.9 0.0-4.0 - ng/ml * Tequila Samuels 11/01/2024 10:40 :31 AM >See phone encounter * Follow Up: 6 Months * Images: Billing Information: * Visit Code: 04400 Office Visit, Est Pt., Level 4. * Procedure Codes: * Electronic signature of Traci Gonzalez MD on 05/02/2025 at 07:09 AM EDT Sign off status: Pending * Provider: Sophia Gonzalez M.D. Date: 0 10/31/2024 Generated for Misha ng/Fajosephg/eTransmitting on: 0 05/02/2025 07:09 AM EDT History and Physical Notes * HPI (History of Present Illness) Category Sub-Category Detail Notes Category Not es Cardiology Blood Pressure Elevated Pt here for 2 mo f/u on hypertension, states he is doing well and does not have any concerns Examination Category Sub-Category Detail Notes Category Not es General Examination HEENT: unremarkable Heart: RSR, systolic murmur present Lungs: clear to auscultatio n Extremities: no leg edema General Appearance: NAD Neurologic Exam: Intact, gait normal Peripheral pulses: normal (2+) bilatera lly
--- OUTSIDE RECORDS SUMMARY | 2025-05-01 09:30 | XMS_ITS ---
Author Organization [facility] Address [address] [facility] [address] [place] [id number] Care Team Providers Care Inorganic Chemistry Teacher Name Role Phone Stevo Gonzalez Primary Care Provider [phone] Allergies Allergen (clinical drug ingredient) Drug/Non Drug Allergy documented on EMR Reaction Allergy Type Onset Date Status angiotensin-converting enzyme inhibitor (FN) LINDSAY Inhibitors cough Drug Allergy Acti ve REASON FOR VISIT 6 months Medications Medication SIG (Take, Route, Frequency, Duration) Notes Start Date End Date Status hydrALAZINE HCl 50 MG 1 tablet with food Orally Three times a day Active Irbesartan 300 MG 1 tablet Orally Once a day 11/11/2023 Active Metoprolol Succinate ER 200 MG 1 tablet Orally Once a day 06/15/2024 Active amLODIPine Besylate 10 MG 1 tablet Orall y Once a day Active Vital Signs Blood pressure systolic 130 mm Hg 05/01/20 25 Blood pressure diastolic 74 mm Hg 025 Heart Rate 78 /min 05/01/2025 Height 68 in 05/01/2025 Weight 199 lbs 05/01/2025 BMI 30.25 kg/m2 05/01/2025 Encounters Encounter Location Date Provider Diagnosis [place] [address] [place] [id number] 05/01/2025 Stevo Gonzalez Essential (primary) hypertension I10 ; Pure hypercholesterolemia E78.00 and IFG (impaired fasting glucose) R73.01 Assessments Encounter Date Diagnosis (ICD Code) Assessment Notes Treatment Notes Treatment Clinical Notes Section Notes 05/01/2025 Essential (primary) hypertension (ICD-10 - I10) 05/01/2025 Pure hypercholesterolemia (ICD-10 - E78.00) 05/01/2025 IFG (impaired fastin g glucose) (ICD-10 - R73.01) Plan Of Treatment Medication Medication Name Sig Start Date Stop Date Notes hydrALAZINE HCl 50 MG 1 tablet with food Orally Three times a day Irbesartan 300 MG 1 tablet Orally Once a day 11/11/2023 Metoprolol Succinate ER 200 MG 1 tablet Orally Once a day 06/15/2024 amLODIPine Besylate 10 MG 1 tablet Orally Once a day Pending Test Test Name Order Date H-Lipid Panel 05/01/2025 H-CMP 05/01/2025 H-Glycohemoglobin A1C 05/01/2025 Next Appt Details Follow Up: 6 Months, Reason: Provider Name:Stevo Almodovar ry, 11/04/2025 01:30:00 PM, [address], [address], [place], [id number], Progress Notes * [place] KIRKLANDDOB:1955 (69 yo M)Acc No.[id number]:05/01/2025 Progress Notes Patient: Ventura LIAO Provider: Sophia Gonzalez M.D. :1955 A ge:69 Y S ex:Male Date:05/01/2025 Address:[place] [id number] Subjective: * Chief Complaints: * 1 . 6 months. * HPI: C ardiology: 69 year old male presents with c/o Blood Pressure Elevated P t here for 6 mo check up on hypertension. Pt states he is doing well and does not have any concerns. c/o Hyperlipidemia P t is not fasting today. * ROS: D ERMATOLOGY: no R mone. n o H edmar. G ASTROENTEROLOGY: no N ausea. n o V omiting. U ROLOGY: no D ifficulty urinating. n o B lood in urine. * Medical History: H ypertension, Asthma, Allergic Rhinitis, Hyperlipidemia, Microscopic Hematuria, s/p urology evaluation, Colon Polyps, Cardiac Murmur - Aortic stenosis, Impaired Fasting Glucose, Intracerebral hemorrhage, Left occipital, 2023, treated at [facility], Embolization of dural AV fistual 2023 at [facility], Melanoma, removed from left side of back, [...] Sexually active: yes. * Medications: T aking hydrALAZINE HCl 50 MG Tablet 1 tablet with food Orally Three times a day , Taking Irbesartan 300 MG Tablet 1 tablet Orally Once a day , Taking Metoprolol Succinate ER 200 MG Tablet Extended Release 24 Hour 1 tablet Orally Once a day , Taking amLODIPine Besylate 10 MG Tablet 1 tablet Orally Once a day , Medication List reviewed and reconciled with the patient * Allergies: A CE Inhibitors: cough. Objective: * Vitals: W t: 199, Temp: 97.8, BP: 130/74, HR: 78, Nurse: rafaela, Ht: 68, BMI:30.25. Assessment: * Assessment: 1. E ssential (primary) hypertension - I10 (Primary) 2 . P ure hypercholesterolemia - E78.00 3 . I FG (impaired fasting glucose) - R73.01 Plan: * Treatment: 2. P ure hypercholesterolemia L AB: H-Lipid Panel L AB: H-CMP 3. I FG (impaired fasting glucose) L AB: H-CMP L AB: H-Glycohemoglobin A1C * Follow Up: 6 Months * Images: Billing Information: * Visit Code: 29965 Office Visit, Est Pt., Level 4. * Procedure Codes: * Electronic signature of Tarci Gonzalez MD on 05/02/2025 at 07:08 AM EDT Sign off status: Pending * Provider: Sophia Gonzalez M.D. Date: 0 05/01/2025 Generated for Misha ramos/Faxing/eTransmitting on: 0 05/02/2025 07:08 AM EDT History and Physical Notes * HPI (History of Present Illness) Category Sub-Category Detail Notes Category Not es Cardiology Blood Pressure Elevated Pt here for 6 mo check up on hypertension. Pt states he is doing well and does not have any concerns Hyperlipidemia Pt is not fasting to day
--- OUTSIDE RECORDS SUMMARY | 2025-05-02 07:09 | XMS_ITS | Clinical Summary ---
Author Organization [facility] Address [address] [place] [address] Care Team Providers Care Area Field Person Name Role Phone Stevo Gonzalez MD Primary Care Provider [phone] Allergies No known active allergies Medications irbesartan (AVAPRO) 300 MG tablet Take 1 tablet by mouth Every Night. Active metoprolol succinate XL (TOPROL-XL) 200 MG 24 hr tablet Take 1 tablet by mouth Daily. 06/15/2024 Active amLODIPine (NORVASC) 10 MG tablet Take 1 tablet by mouth Daily. 30 tablet 1 08/02/2024 1:41 PM EDT 08/03/2024 Active hydrALAZINE (APRESOLINE) 50 MG tablet Take 1 tablet by mouth Every 8 (Eight) Hours. 90 tablet 1 08/02/2024 1:41 PM EDT 08/02/2024 Active Gemtesa 75 MG tablet 12/31/2024 Active tamsulosin (FLOMAX) 0.4 MG capsule 24 hr capsule Take 1 capsule by mouth Daily. 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 ICH 07/29/2024 Essential hypertension 07/29/2024 Heart murmur 07/29/2024 Immunizations Immunization Administration Dates Next Due Td, Not Adsorbed 08/30/2018 Social History Tobacco Use Types Packs/Day Years Used Date Smoking Tobacco: Never Passive Smoke Exposure: Never Smokeless Tobacco: Never Tobacco Cessation:Counseling Given: Not Answered Alcohol Use Standard Drinks/Week Comments Yes 0 (1 standard drink = 0.6 oz pur e alcohol) OCCASIONALLY [facility] Utilities Answer Date Recorded In the past 12 months has th e electric, gas, oil, or water company threatened to shut off services in your home? No 08/15/2024 AUDIT-C Answer Date Recorded Q1: How often do you have a drink containing alc ohol? Monthly or less 08/14/2024 Q2: How many drinks containi ng alcohol do you have on a typical day when you are drinking? 1 or 2 08/14/2024 Q3: How often do you have si x or more drinks on one occasion? Never 08/14/2024 Overall Financial Resource Strain (CARDIA) Answe r Date Recorded How hard is it for you to pa y for the very basics like food, housing, medical care, and heating? Not very hard 08/15/2024 [facility] - Occupational Stress Questionnaire Answer Date Recorded Do you feel stress - tense, restless, nervous, or anxious, or unable to sleep at night because your mind is troubled all the time - these days? Not at all 08/15/2024 Exercise Vital Sign Answer Date Recorde d On average, how many days pe r week do you engage in moderate to strenuous exercise (like a brisk walk)? Patient declined On average, how many minutes do you engage in exercise at this level? Patient declined 08/15/2024 Hunger Vital Sign Answer Date Recorded Within the past 12 months, y ou worried that your food would run out before you got the money to buy more. Never true 08/15/20 24 Within the past 12 months, t he food you bought just didn't last and you didn't have money to get more. Never true 08/15/2024 PRAPARE - Transportation Answer Date Re corded In the past 12 months, has l ack of transportation kept you from medical appointments or from getting medications? No 03/2024 In the past 12 months, has l ack of transportation kept you from meetings, work, or from getting things needed for daily living? No 08/15/2024 Abuse Screen Answer Date Recorded Feels Unsafe at Home or Work/School no 08/14/2024 Feels Threatened by Someone no 02/2024 Does Anyone Try to Keep You From Having Contact with Others or Doing Things Outside Your Home? no 08/14/2024 Physical Signs of Abuse Present no 08/14/2024 Housing Stability Answer Date Recorded Current Living Arrangements home 03/2024 Potentially Unsafe Housing Conditions unable to assess 08/15/2024 Family and Community Support Answer Gustavo e Recorded If for any reason you need h elp with day-to-day activities such as bathing, preparing meals, shopping, managing finances, etc., do you get the help you need? Patient declined 08/15/2024 How often do you feel lonely or isolated from those around you? Never 08/15/2024 Employment Answer Date Recorded Do you want help finding or keeping work or a job? I do not need or want help 08/15/2024 Disabilities Answer Date Recorded Difficulty Concentrating, Remembering or Making Decisions no 08/14/2024 Difficulty Managing Errands Independently no 08/14/2024 Education Answer Date Recorded Do you want help with school or training? For example, starting or completing job training or getting a high school diploma, GED or equivalent No 08/15/2024 Preferred Language Tongan 08/15/2024 PHQ-2 Answer Date Recorded Patient Health Questionnaire-2 Score 0 08/15/2024 Sex and Gender Information Value Date Recorded Sex Assigned at Not on file Legal Sex Male 12:42 PM EDT Gender Identity Not on file Sexual Orientation Not on file Last Filed Vital Signs Vital Sign Reading Time Taken Comments Blood Pressure 134/73 08/15/2024 9:12 AM EST Pulse 80 08/15/2024 9:12 AM EST Temperature 36.2 C (97.1 F) 01/03/2025 9:22 AM EDT Respiratory Rate 18 08/15/2024 4:00 AM EST Oxygen Saturation 95% 08/15/2024 9:00 AM EST Inhaled Oxygen Concentration - - Weight 86.6 kg (191 lb) 01/03/2025 9:22 AM EDT Height 170.2 cm (5' 7 ) 01/03/2025 9:22 AM EDT Body Mass Index 29.91 01/03/2025 9:22 AM EDT Plan of Treatment Scheduled Procedures Name Priority Associated Diagnoses Date/Ti me CV IR INTRACRANIAL EMBOLIZATION Dural arteriovenous fistula Health Maintenance Due Date Last Done Comments COLOGUARD 1998 COLON CANCER SCREENING 5 YEA R SIGMOIDOSCOPY 1998 COLONOSCOPY 1998 [address] CANCER SCREENING 1998 CT COLONOGRAPHY 1998 FECAL OCCULT BLOOD TEST 1998 FIT Testing (1 year) 1998 Pneumococcal Vaccine 50+ (1 of 1 - PCV) 2003 ZOSTER VACCINE (1 of 2) 2003 TDAP/TD VACCINES (1 - Tdap) 08/31/2018 08/30/2018 COVID-19 Vaccine ( season) 2024, 10/08/2020 ANNUAL PHYSICAL 08/07/2024 HEPATITIS C SCREENING 08/07/2024 INFLUENZA VACCINE 07/10/2025 Medical Devices Implanted Type Area Manager Internship Device Identifier Shelf Expiration Date Model / Serial / Lot Sys Del Liq Emb [place] 18 Evoh/6pct Vl1.5ml - [id number] Implanted:Qty: 1 on 08/14/2024 by Moise Brar MD at [facility] Implant [employer] 12/29/2025 [id number] / / [id number] Sys Del Liq Emb [place] 18 Evoh/6pct Vl1.5ml - [id number] Implanted:Qty: 1 on 08/14/2024 by Moise Brar MD at [facility] Implant [employer] 12/29/2025 [id number] / / [id number] Insurance [facility] Advance Directives * CPR (Attempt to Resuscitate) (Latest Code Status on File) Date Activated Date Inactivated Comments 08/14/2024 1:37 PM 08/15/2024 2:23 PM Question Answer Comments Code Status (Patient has no pulse and is not breathing): CPR (Attempt to Resuscitate) Medical Interventions (Patie nt has pulse or is breathing): Full Support * CPR (Attempt to Resuscitate) Date Activated Date Inactivated Comments 07/29/2024 6:20 PM 08/02/2024 4:59 PM Question Answer Comments Code Status (Patient has no pulse and is not breathing): CPR (Attempt to Resuscitate) Medical Interventions (Patie nt has pulse or is breathing): Full Support Care Teams Area Field Person Relationship Specialty Start Date End Date Stevo Gonzalez MD [address] [facility] [address] [facility] [address] [place] [address] PCP - General Family Medicine 07/30/24
--- OUTSIDE RECORDS SUMMARY | 2025-05-02 07:09 | XMS_ITS | Patient Health Record ---
[facility] Address [address] [facility] [address] [place] [id number] Care Team Providers Care Sales Floor Team Leader Name Role Phone Tisha Gonzalezian Primary Care Provider Allergies Allergen (clinical drug [...] Performing Lab: Notes/Report: [facility] 0.9 0.0-4.0 ng/ml Reason For Referral No Information Medications Medication SIG (Take, Route, Frequency, Duration) Notes Start Date End Date Status hydrALAZINE HCl 50 MG 1 tablet with food Orally Three times a day Active Irbesartan 300 MG 1 tablet Orally Once a day 11/11/2023 Active Metoprolol Succinate ER 200 MG 1 tablet Orally Once a day 06/15/2024 Active amLODIPine Besylate 10 MG 1 tablet Orall y Once a day Active Immunizations Vaccine Route Administration Date Status Comme nts xFlu shot-36 months and older IM Intramuscular 07/20/2011 Administered COVID 19 Moderna Unknown 11/07/2020 Administered Problems Problem Type SNOMED Code ICD Code Onset Dates Problem Status W/U Status Risk Notes Problem Essential hypertension (31340242) Essential (primary) hypertension (I10) Active confirmed Problem History of polyp of colon (situation) (576076911) History of colon polyps (Z86.010) Active confirmed Problem Impaired fasting glycaemia (388913854) IFG (impaired fasting glucose) (R73.01) Active confirmed Problem Pure hypercholesterolemia (000668169) Pure hypercholesterolemia (E78.00) Active confirmed Problem Seasonal allergic rhinitis (769877211) Seasonal allergic rhinitis, unspecified trigger (J30.2) Active confirmed Problem Cerebral hemorrhage (776259470) Left-sided nontraumatic intracerebral hemorrhage, unspecified cerebral location (I61.9) Active confirmed Vital Signs Heart Rate 78 /min 05/01/2025 Blood pressure diastolic 74 mm Hg 05/01/2025 Height 68 in 05/01/2025 Blood pressure systolic 130 mm Hg 05/01/2025 Weight 199 lbs 05/01/2025 BMI 30.25 kg/m2 05/01/2025 Encounters Encounter Location Date Provider Diagnosis [facility] [address] [place], [place] [id number] 06/15/2024 Stevo [place] Essential (primary) hypertension I10 [facility] [address] [place], [place] [id number] 08/13/2024 Stevo [place] Left-sided nontrauma tic intracerebral hemorrhage, unspecified cerebral location I61.9 and Essential (primary) hypertension I10 [facility] [address] [place], [place] [id number] 08/29/2024 Stevo [place] Essential (primary) hypertension I10 [facility] [address] [place], [place] [id number] 10/31/2024 Stevo [place] Essential (primary) hypertension I10 ; Pure hypercholesterolemia E78.00 ; IFG (impaired fasting glucose) R73.01 and Prostate cancer screening Z12.5 [facility] [address] [place], [place] [id number] 05/01/2025 Stevo [place] Essential (primary) hypertension I10 ; Pure hypercholesterolemia E78.00 and IFG (impaired fasting glucose) R73.01 [facility] [address] [place], [place] [id number] 11/01/2024 Stevo [place] [facility] [address] [place], [place] [id number] 04/11/2025 [place] Essential (primary) hypertension I10 Assessments Encounter Date Diagnosis (ICD Code) Assessment Notes Treatment Notes Treatment Clinical Notes Section Notes 06/15/2024 Essential (primary) hypertension (ICD-10 - I10) Not at goal today, Blood pressure journal 08/13/2024 Essential (primary) hypertension (ICD-10 - I10) 08/13/2024 Left-sided nontrauma tic intracerebral hemorrhage, unspecified cerebral location (ICD-10 - I61.9) Records from recent [facility] admission reviewed in office today. Patient is going to have a percutaneous intracerebral intervention tomorrow 08/29/2024 Essential (primary) hypertension (ICD-10 - I10) 10/31/2024 Essential (primary) hypertension (ICD-10 - I10) 10/31/2024 Pure hypercholesterolemia (ICD-10 - E78.00) 04/11/2025 Essential (primary) hypertension (ICD-10 - I10) 05/01/2025 Essential (primary) hypertension (ICD-10 - I10) 05/01/2025 Pure hypercholesterolemia (ICD-10 - E78.00) 10/31/2024 IFG (impaired fastin g glucose) (ICD-10 - R73.01) 05/01/2025 IFG (impaired fastin g glucose) (ICD-10 - R73.01) 10/31/2024 Prostate cancer screening (ICD-10 - Z12.5) Plan Of Treatment Pending Test Test Name Order Date H-Lipid Panel 05/01/2025 H-CMP 05/01/2025 H-Glycohemoglobin A1C 05/01/2025 Next Appt Details Provider Name:Stevo Almodovar , 11/04/2025 01:30:00 PM, [address] [facility], [address], [place], [id number], Insurance Providers Payer Name Payer Address Payer Phone Subscriber Number Group Number Insured Name Patient Relationship to Insured Coverage Start Date Coverage End Date [facility] [address] [place] [phone] [id number] Ventura Mendoza Self - patient is the insured Medical (General) History Medical History History ICD Code Hypertension Asthma Allergic Rhinitis Hyperlipidemia Microscopic Hematuria, s/p urology evalu ation Colon Polyps Cardiac Murmur - Aortic stenosis Impaired Fasting Glucose Intracerebral hemorrhage, Le ft occipital, 2023, treated at [facility] Embolization of dural AV fistual at [facility] Melanoma, removed from left side of back , removed 2023 Surgical History Surgery Date(Month/Year) Colonoscopy 2006, 2012, 2018
[2025-05-02 08:17] LABS: Alanine Aminotransferase 28 U/L (12-78); Albumin Level 4.4 g/dl (3.5-5.0); Albumin/Globulin Ratio 1.7 (1.1-1.8); Alkaline Phosphatase 81 U/L (38-126); Anion Gap 12.6 mEq/L (5-15); Aspartate Amino Transferase 33 U/L (17-59); Bilirubin,Total 1.0 mg/dl (0.2-1.3); Blood Urea Nitrogen 15 mg/dl (9-20); Calcium 10.0 mg/dl (8.4-10.2); Carbon Dioxide 29 mmol/L (22.0-30.0); Chloride 101 mmol/L (98-107); Cholesterol 203 mg/dl (140-200); Creatinine,Serum 0.80 mg/dl (0.66-1.25); Estimated Glomerular Filt Rate 95 ml/min (>60); GFR (African American) 115 ML/MIN (>60); Globulin 2.6 g/dL (1.3-3.2); Glucose 154 mg/dl (74-100); HDL Cholesterol 52 mg/dl (40-60); Potassium 4.6 mmoL/L (3.5-5.1); Sodium 138 mmol/L (136-145); Total Protein,Serum 7.0 g/dl (6.3-8.2); Triglycerides 150 mg/dl (30-150)
[2025-05-02 09:40] LABS: Hemoglobin A1C 6.7 % (4.0-6.0)
== END 2025-05-02 23:59 | disposition home or self-care (01) ==
LOC: LAB 07:07
PROVIDERS: PCP Family Medicine; Visit Provider Family Medicine
DX: E78.00 Pure hypercholesterolemia, unspecified (principal); I10 Essential (primary) hypertension; R73.01 Impaired fasting glucose
CPT/HCPCS: 36415; 80053; 80061; 83036